=== PATIENT | male | born 1975 | race Caucasian/White ===

== ENCOUNTER 2016-08-31 08:38 | Emergency (ER) | payer OTHER ==
[2016-08-31 09:32] LABS: BASOPHIL 0.5 % (0-2); EOSINOPHIL 0.7 % (0-5); HCT 49.3 % (42.0-52.0); HGB 17.1 g/dl (13.2-18.0); LYMPHOCYTE 14.3 % (15-48); MCH 30.5 pg (25.0-31.0); MCHC 34.7 g/dL (32.0-36.0); MCV 87.9 fL (78.0-100.0); MONOCYTE 6.4 % (0-12); MPV 9.6 fL (6.0-9.5); NEUTROPHIL 78.1 % (41-80); PLT 280 K/uL (150-400); RBC 5.61 M/uL (4.70-6.00); RDW 15.5 % (11.5-14.0); WBC 9.9 K/uL (4.0-10.5)
[2016-08-31 09:44] LABS: POTASSIUM 4.3 mmol/L (3.5-5.1)
[2016-08-31 10:07] LABS: BILIRUBIN NEGATIVE (NEGATIVE); BLOOD 2+ Ery/uL (NEGATIVE); CLARITY CLEAR (CLEAR); COLOR YELLOW (YELLOW); GLUCOSE (U) NORMAL (NORMAL); KETONE (U) NEGATIVE (NEGATIVE); LEUKOCYTES NEGATIVE Leu/uL (NEGATIVE); NITRITE NEGATIVE (NEGATIVE); PROTEIN 2+ mg/dL (NEGATIVE); SPECIFIC GRAVITY 1.025 (1.001-1.030); UROBILINOGEN 0.2 mg/dL (0.2-1.0)
[2016-08-31 10:14] LABS: AMORPHOUS URATES CRYSTALS MODERATE
[2016-08-31 10:20] LABS: AMPHETAMINES POSITIVE (NEGATIVE); BENZODIAZEPINES NEGATIVE (NEGATIVE); COCAINE NEGATIVE (NEGATIVE)
[2016-08-31 10:21] LABS: BARBITURATES NEGATIVE (NEGATIVE); MARIJUANA (THC) NEGATIVE (NEGATIVE); METHADONE NEGATIVE (NEGATIVE); TRICYCLIC ANTIDEPRESSANT NEGATIVE (NEGATIVE)
== END 2016-08-31 13:15 | disposition home or self-care (01) ==
LOC: FER 08:38
PROVIDERS: Emergency Medicine
DX: F15.10 Other stimulant abuse, uncomplicated (principal); F10.129 Alcohol abuse with intoxication, unspecified; S40.022A Contusion of left upper arm, initial encounter; S40.021A Contusion of right upper arm, initial encounter; J44.9 Chronic obstructive pulmonary disease, unspecified; F17.210 Nicotine dependence, cigarettes, uncomplicated; Y04.2XXA Assault by strike against or bumped into by another person, initial encounter; Y90.6 Blood alcohol level of 120-199 mg/100 ml
CPT/HCPCS: 36415; 70450; 71010; 80048; 80305; 81001; 85025; G0480; J2310

== ENCOUNTER 2020-03-13 14:37 | Emergency (ER) | payer SELFPAY ==
[2020-03-13 16:12] LABS: BILIRUBIN NEGATIVE (NEGATIVE); BLOOD NEGATIVE Ery/uL (NEGATIVE); COLOR YELLOW (YELLOW); GLUCOSE (U) NORMAL (NORMAL); LEUKOCYTES TRACE Leu/uL (NEGATIVE); NITRITE POSITIVE (NEGATIVE); PROTEIN NEGATIVE (NEGATIVE); SPECIFIC GRAVITY >=1.030 (1.001-1.030); UROBILINOGEN 0.2 mg/dL (0.2-1.0); pH 5.5 (5.0-9.0)
[2020-03-13 16:16] LABS: CLARITY HAZY (CLEAR)
[2020-03-13 16:17] LABS: BACTERIA 1+; SPERM PRESENT; URINARY RBC RARE
[2020-03-13] MEDS ORDERED: BACTRIM DS TAB1 EACH PO (17:52)
[2020-03-16 00:06] LABS: CHLAMYDIA TRACHOMATIS, NAA Negative (Negative); NEISSERIA GONORRHOEAE, NAA Negative (Negative)
== END 2020-03-13 18:00 | disposition home or self-care (01) ==
LOC: FER 14:37
PROVIDERS: Internal Medicine
DX: N39.0 Urinary tract infection, site not specified (principal); Z20.2 Contact with and (suspected) exposure to infections with a predominantly sexual mode of transmission; Z90.81 Acquired absence of spleen
CPT/HCPCS: 81001; 87491; 87591; 99283; J0696